=== PATIENT | female | born 1965 | race Caucasian/White ===

== ENCOUNTER 2025-09-04 07:08 | Emergency (ER) | payer SELFPAY ==
[~2025-09-04] VITALS: Ht 167.6 cm; Wt 77.2 kg
[2025-09-04] MEDS: IBUPROFEN 800 MG TAB PO ONE (07:58)
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
[2025-09-04 08:20] VITALS: BP 175/92; PULSE 67; RESP 18; TEMP 97.5; O2SAT 96
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
[2025-09-04] MEDS ORDERED: IBUP-1456 PO (08:53)
[2025-09-04] MEDS ORDERED: METH-1182 PO (08:53)
== END 2025-09-04 09:00 | disposition home or self-care (01) ==
LOC: EDBD 07:08 → EDSEX 07:08 → ER 07:08
DX: S16.1XXA Strain of muscle, fascia and tendon at neck level, initial encounter (principal); S20.219A Contusion of unspecified front wall of thorax, initial encounter; F17.210 Nicotine dependence, cigarettes, uncomplicated; V89.2XXA Person injured in unspecified motor-vehicle accident, traffic, initial encounter; Y92.410 Unspecified street and highway as the place of occurrence of the external cause; Y93.89 Activity, other specified; Y99.8 Other external cause status
CPT/HCPCS: 71046; 72040